=== PATIENT | male | born 1995 | race African-American/Black ===

== ENCOUNTER 2018-05-12 20:48 | Emergency (ER) | payer OTHER ==
[~2018-05-12] VITALS: Ht 175.3 cm; Wt 70.3 kg
--- NOTE | ~2018-05-12 | EKG ---
[place] [address] 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
[~2018-05-12 20:48] MED LIST: FLEXERIL PO; IBUPROFEN 800800 MG PO; NOHOMEMEDICATIONS; ZANTAC 150MG T150 MG PO
[2018-05-12 22:28] VITALS: BP 116/72
== END 2018-05-12 22:29 | disposition home or self-care (01) ==
LOC: ER 20:48
DX: R07.89 Other chest pain (principal); R09.89 Other specified symptoms and signs involving the circulatory and respiratory systems; Z21 Asymptomatic human immunodeficiency virus [HIV] infection status

== ENCOUNTER 2018-06-19 12:20 | Emergency (ER) | payer OTHER ==
[~2018-06-19] VITALS: Ht 172.7 cm; Wt 65.8 kg
--- NOTE | ~2018-06-19 | EKG ---
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
[2018-06-19 12:57] LABS: ABSOLUTE NEUTROPHILS 2.8 thou/uL (1.4-8.2); BASOPHILS 0.2 % (0.0-2.0); EOSINOPHILS 0.9 % (0.0-3.0); HEMATOCRIT 40.1 % (42.0-52.0); HEMOGLOBIN 13.2 gm/dL (14.0-18.0); LYMPHOCYTES 29.9 % (24.0-44.0); MCH 27.9 pg (26.0-34.0); MCHC 32.9 g/dL (28.0-37.0); MCV 84.6 fL (80.0-100.0); MONOCYTES 10.1 % (1.0-8.0); PLATELET COUNT 210 thou/uL (150-400); POLYS 58.9 % (36.0-66.0); RBC 4.74 mil/uL (4.50-6.00); RDW 14.2 % (10.5-14.5); WBC 4.7 thou/uL (4.0-11.0)
[2018-06-19 13:00] LABS: URINE BILIRUBIN NEGATIVE (Negative); URINE BLOOD NEGATIVE (Negative); URINE CLARITY CLEAR; URINE COLOR YELLOW; URINE GLUCOSE-RANDOM* NEGATIVE (Negative); URINE KETONES NEGATIVE (Negative); URINE LEUKOCYTES-REFLEX NEGATIVE (Negative); URINE NITRITE-REFLEX NEGATIVE (Negative); URINE PROTEIN (DIPSTICK) NEGATIVE (Negative); URINE UROBILINOGEN 0.2 E.U./dl (0.2-1.0)
[2018-06-19 13:03] LABS: CALCIUM 9.8 mg/dL (8.5-10.1); CREATININE 1.1 mg/dL (0.7-1.3); POTASSIUM 3.9 mmol/L (3.5-5.1)
[2018-06-19 13:06] LABS: AMP/METHAMP Negative (Negative); BARBITURATES Negative (Negative); BENZODIAZEPINES Negative (Negative); COCAINE Negative (Negative); METHADONE Negative (Negative); OPIATES Negative (Negative); PCP Negative (Negative)
[2018-06-19 13:13] LABS: ALBUMIN 4.2 g/dL (3.4-5.0); TOTAL BILIRUBIN 0.4 mg/dL (<0.1-1.0); TOTAL PROTEIN 8.8 g/dL (6.4-8.2)
[2018-06-19 15:16] VITALS: BP 122/78
== END 2018-06-19 15:17 | disposition home or self-care (01) ==
LOC: ER 12:20
PROVIDERS: Nurse Practitioner Family
DX: R42 Dizziness and giddiness (principal); R82.5 Elevated urine levels of drugs, medicaments and biological substances; Z87.891 Personal history of nicotine dependence

== ENCOUNTER 2019-01-05 14:53 | Emergency (ER) | payer BC ==
[~2019-01-05] VITALS: Ht 172.7 cm; Wt 74.8 kg
[2019-01-05 15:55] LABS: URINE BLOOD NEGATIVE (Negative); URINE CLARITY CLEAR; URINE COLOR YELLOW; URINE GLUCOSE-RANDOM* NEGATIVE (Negative); URINE KETONES 3+ (Negative); URINE LEUKOCYTES NEGATIVE (Negative); URINE NITRITE NEGATIVE (Negative); URINE PROTEIN (DIPSTICK) TRACE (Negative); URINE SPECIFIC GRAVITY >= 1.030 (1.005-1.035); URINE UROBILINOGEN 0.2 E.U./dl (0.2-1.0)
[2019-01-05 15:56] LABS: URINE BILIRUBIN NEGATIVE (Negative)
[2019-01-05 16:01] LABS: URINE REDUCING SUBSTANCE NEGATIVE
[2019-01-05 16:43] VITALS: BP 115/73
== END 2019-01-05 16:40 | disposition home or self-care (01) ==
LOC: ER 14:53
PROVIDERS: Physician Assistant
DX: Z20.2 Contact with and (suspected) exposure to infections with a predominantly sexual mode of transmission (principal); Z21 Asymptomatic human immunodeficiency virus [HIV] infection status; Z87.891 Personal history of nicotine dependence

== ENCOUNTER 2019-02-26 22:19 | Emergency (ER) | payer BC ==
[~2019-02-26] VITALS: Ht 177.8 cm; Wt 70.3 kg
[2019-02-26 22:39] LABS: ABSOLUTE NEUTROPHILS 2.3 thou/uL (1.4-8.2); BASOPHILS 0.2 % (0.0-2.0); EOSINOPHILS 1.3 % (0.0-3.0); HEMOGLOBIN 12.3 gm/dL (14.0-18.0); LYMPHOCYTES 51.4 % (24.0-44.0); MCH 28.8 pg (26.0-34.0); MCHC 33.3 g/dL (28.0-37.0); MCV 86.3 fL (80.0-100.0); PLATELET COUNT 191 thou/uL (150-400); POLYS 38.1 % (36.0-66.0); RBC 4.29 mil/uL (4.50-6.00); RDW 14.4 % (10.5-14.5); WBC 6.2 thou/uL (4.0-11.0)
[2019-02-26] MEDS ORDERED: BIKTARVY 50-201 EACH PO (22:40)
[2019-02-26 22:46] LABS: ANION GAP 7 mmol/L (7-16); BUN 11 mg/dL (7-18); CALCIUM 9.4 mg/dL (8.5-10.1); CHLORIDE 102 mmol/L (98-107); CO2 29 mmol/L (21-32); GLUCOSE 89 mg/dL (74-106); POTASSIUM 4.1 mmol/L (3.5-5.1); SODIUM 138 mmol/L (136-145)
[2019-02-26 22:55] LABS: TROPONIN-I <0.06 ng/mL (<0.06)
[2019-02-27] MEDS ORDERED: IBU600 MG PO (01:05)
[2019-02-27] MEDS ORDERED: COLCHICINE0.6 MG PO (01:05)
[2019-02-27 01:31] VITALS: BP 119/74
--- NOTE | 2019-02-27 11:46 | EKG ---
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
--- NOTE | 2019-02-27 11:47 | EKG ---
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 Hand: ANATOLY : 1995 Requested By: Julio Rudd Order Number: [id number] MD: Augusto Hancock Measurements Intervals [place] Rate: 62 P: 53 [place]: 149 QRS: 66 QRSD: 93 T: 50 QT: 409 QTc: 416 Interpretive Statements Sinus rhythm ST elevation suggests pericarditis versus early repolarization Compared to ECG 06/19/2018 12:27:35 no significant change Electronically Signed On 02-27-2019 11:46:57 CDT by Augusto Hancock [email or web address] <ELECTRONICALLY SIGNED> By: Augusto Hancock MD 02/27/19 1146 2302 2302 Augusto Hancock MD /NOHELIA
== END 2019-02-27 01:33 | disposition home or self-care (01) ==
LOC: ER 22:19
PROVIDERS: Emergency Medicine
DX: I31.9 Disease of pericardium, unspecified (principal); Z87.891 Personal history of nicotine dependence; Z21 Asymptomatic human immunodeficiency virus [HIV] infection status

== ENCOUNTER 2019-04-02 08:15 | Emergency (ER) | payer BC ==
[~2019-04-02] VITALS: Ht 177.8 cm; Wt 70.3 kg
[~2019-04-02 08:15] MED LIST changes: +BIKTARVY 50-201 EACH PO; +COLCHICINE0.6 MG PO; +IBU600 MG PO
[2019-04-02 08:32] LABS: URINE BILIRUBIN NEGATIVE (Negative); URINE BLOOD NEGATIVE (Negative); URINE CLARITY CLEAR; URINE COLOR YELLOW; URINE GLUCOSE-RANDOM* NEGATIVE (Negative); URINE KETONES NEGATIVE (Negative); URINE LEUKOCYTES NEGATIVE (Negative); URINE NITRITE NEGATIVE (Negative); URINE PROTEIN (DIPSTICK) NEGATIVE (Negative)
[2019-04-02 08:47] LABS: ABSOLUTE NEUTROPHILS 1.9 thou/uL (1.4-8.2); BASOPHILS 0.2 % (0.0-2.0); EOSINOPHILS 0.7 % (0.0-3.0); HEMATOCRIT 40.2 % (42.0-52.0); HEMOGLOBIN 13.1 gm/dL (14.0-18.0); LYMPHOCYTES 53.2 % (24.0-44.0); MCH 28.5 pg (26.0-34.0); MCHC 32.5 g/dL (28.0-37.0); MCV 87.6 fL (80.0-100.0); MONOCYTES 8.1 % (1.0-8.0); PLATELET COUNT 215 thou/uL (150-400); POLYS 37.8 % (36.0-66.0); RBC 4.59 mil/uL (4.50-6.00); RDW 14.3 % (10.5-14.5); WBC 5.1 thou/uL (4.0-11.0)
[2019-04-02 08:53] LABS: CALCIUM 9.2 mg/dL (8.5-10.1); CREATININE 0.9 mg/dL (0.7-1.3); POTASSIUM 3.9 mmol/L (3.5-5.1)
[2019-04-02 08:59] LABS: ALBUMIN 4.1 g/dL (3.4-5.0); TOTAL BILIRUBIN 0.3 mg/dL (<0.1-1.0); TOTAL PROTEIN 8.6 g/dL (6.4-8.2)
[2019-04-02] MEDS ORDERED: ONDANSETRON ODT8 MG PO (09:11)
[2019-04-02] MEDS ORDERED: PRILOSEC OTC20 MG PO (09:11)
[2019-04-02 09:20] VITALS: BP 116/69
[2019-04-02] MEDS ORDERED: PREDNISONE 20 M20 MG PO (09:20)
--- NOTE | 2019-04-03 14:17 | EKG ---
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 : 1995 Requested By: Dillon Raman Order Number: [id number] MD: James Valdes Measurements Intervals [place] Rate: 68 P: 83 [place]: 164 QRS: 79 QRSD: 89 T: 60 QT: 405 QTc: 431 Interpretive Statements Sinus rhythm ST elevation suggests acute pericarditis versus early repolarization Compared to ECG 02/26/2019 23:02:30 No significant change was found Electronically Signed On 04-03-2019 14:17:33 CDT by James Valdes [email or web address] ��������������������������������������������� <ELECTRONICALLY SIGNED> ���������������������������������������� By: James Valdes MD, [facility] ��������������������������������������������� 04/03/19 1417 3 3 James Valdes MD, FAC /EPI
== END 2019-04-02 09:20 | disposition home or self-care (01) ==
LOC: ER 08:15
PROVIDERS: Emergency Medicine
DX: R10.13 Epigastric pain (principal); R11.2 Nausea with vomiting, unspecified; B20 Human immunodeficiency virus [HIV] disease; Z87.891 Personal history of nicotine dependence

== ENCOUNTER 2019-06-11 10:08 | Emergency (ER) | payer BC ==
[~2019-06-11] VITALS: Ht 177.8 cm; Wt 72.1 kg
[~2019-06-11 10:08] MED LIST changes: +ONDANSETRON ODT8 MG PO; +PREDNISONE 20 M20 MG PO; +PRILOSEC OTC20 MG PO
[2019-06-11 11:01] LABS: ABSOLUTE NEUTROPHILS 2.3 thou/uL (1.4-8.2); BASOPHILS 0.5 % (0.0-2.0); EOSINOPHILS 0.7 % (0.0-3.0); HEMATOCRIT 38.8 % (42.0-52.0); HEMOGLOBIN 12.6 gm/dL (14.0-18.0); MCH 28.6 pg (26.0-34.0); MCHC 32.4 g/dL (28.0-37.0); MCV 88.1 fL (80.0-100.0); PLATELET COUNT 208 thou/uL (150-400); POLYS 51.8 % (36.0-66.0); RDW 14.7 % (10.5-14.5); WBC 4.4 thou/uL (4.0-11.0)
[2019-06-11 11:04] LABS: CALCIUM 9.5 mg/dL (8.5-10.1); POTASSIUM 3.7 mmol/L (3.5-5.1)
[2019-06-11 12:23] VITALS: BP 107/72
--- NOTE | 2019-06-13 07:52 | EKG ---
[place] [address] 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 : 1995 Requested By: Julio Rudd Order Number: [id number] MD: James Valdes Measurements Intervals [place] Rate: 67 P: 57 [place]: 163 QRS: 64 QRSD: 96 T: 32 QT: 396 QTc: 418 Interpretive Statements Sinus rhythm ST elev, probable normal early repol pattern Compared to ECG 04/02/2019 09:14:19 No significant change was found Electronically Signed On 06-13-2019 7:52:22 TATTOO TECHNICIAN by James Valdse [email or web address] <ELECTRONICALLY SIGNED> By: James Vlades MD, [facility] 06/13/19 0752 1209 08 James Valdes MD, FACC /EPI
== END 2019-06-11 12:24 | disposition home or self-care (01) ==
LOC: ER 10:08
PROVIDERS: Emergency Medicine
DX: R53.81 Other malaise (principal); Z21 Asymptomatic human immunodeficiency virus [HIV] infection status; Z87.891 Personal history of nicotine dependence

== ENCOUNTER 2020-04-08 10:18 | Emergency (ER) | payer BC ==
[~2020-04-08] VITALS: Ht 177.8 cm; Wt 71.7 kg
[2020-04-08 11:18] LABS: BASOPHILS 0.4 % (0.0-2.0); EOSINOPHILS 0.4 % (0.0-3.0); HEMATOCRIT 41.6 % (42.0-52.0); HEMOGLOBIN 13.6 gm/dL (14.0-18.0); LYMPHOCYTES 26.8 % (24.0-44.0); MCH 29.1 pg (26.0-34.0); MCHC 32.6 g/dL (28.0-37.0); MCV 89.4 fL (80.0-100.0); MONOCYTES 6.6 % (1.0-8.0); PLATELET COUNT 222 thou/uL (150-400); POLYS 65.8 % (36.0-66.0); RBC 4.66 mil/uL (4.50-6.00); RDW 14.2 % (10.5-14.5); WBC 4.6 thou/uL (4.0-11.0)
[2020-04-08 11:26] LABS: CALCIUM 9.2 mg/dL (8.5-10.1); CREATININE 0.9 mg/dL (0.7-1.3); POTASSIUM 4.3 mmol/L (3.5-5.1)
[2020-04-08 11:32] LABS: TOTAL BILIRUBIN 0.3 mg/dL (0.2-1.0); TOTAL PROTEIN 8.3 g/dL (6.4-8.2)
[2020-04-08] MEDS ORDERED: ZOFRAN ODT4 MG PO (12:04)
[2020-04-08 12:07] VITALS: BP 119/59
--- NOTE | 2020-04-08 16:46 | EKG ---
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: [facility] : 1995 Requested By: Camilo Jon Order Number: [id number] MD: James Valdes Measurements Intervals [place] Rate: 54 P: 60 [place]: 159 QRS: 71 QRSD: 89 T: 57 QT: 427 QTc: 405 Interpretive Statements Sinus rhythm ST elevation suggests early repolarization Compared to ECG 06/11/2019 12:09:40 No significant changes Electronically Signed On 04-08-2020 16:46:08 CDT by James Valdes [email or web address] <ELECTRONICALLY SIGNED> By: James Valdes MD, [facility] 04/08/20 1646 1129 1129 James Valdes MD, [facility] /EPI
== END 2020-04-08 12:07 | disposition home or self-care (01) ==
LOC: ER 10:18
PROVIDERS: Emergency Medicine
DX: R11.2 Nausea with vomiting, unspecified (principal); R07.89 Other chest pain; R10.13 Epigastric pain; R10.12 Left upper quadrant pain; J02.9 Acute pharyngitis, unspecified; R53.83 Other fatigue; B20 Human immunodeficiency virus [HIV] disease; Z79.899 Other long term (current) drug therapy; Z87.891 Personal history of nicotine dependence

== ENCOUNTER 2020-05-09 18:44 | Emergency (ER) | payer OTHER ==
[~2020-05-09] VITALS: Ht 180.3 cm; Wt 71.7 kg
[~2020-05-09 18:44] MED LIST changes: +ZOFRAN ODT4 MG PO
[2020-05-09 19:12] LABS: URINE BILIRUBIN NEGATIVE (Negative); URINE BLOOD NEGATIVE (Negative); URINE CLARITY CLEAR; URINE COLOR YELLOW; URINE GLUCOSE-RANDOM* NEGATIVE (Negative); URINE KETONES NEGATIVE (Negative); URINE LEUKOCYTES-REFLEX NEGATIVE (Negative); URINE NITRITE-REFLEX NEGATIVE (Negative); URINE PROTEIN (DIPSTICK) NEGATIVE (Negative); URINE SPECIFIC GRAVITY >= 1.030 (1.005-1.035)
[2020-05-09 19:15] LABS: ABSOLUTE NEUTROPHILS 1.4 thou/uL (1.4-8.2); BASOPHILS 0.3 % (0.0-2.0); EOSINOPHILS 0.6 % (0.0-3.0); HEMATOCRIT 40.2 % (42.0-52.0); HEMOGLOBIN 13.1 gm/dL (14.0-18.0); LYMPHOCYTES 52.3 % (24.0-44.0); MCH 29.4 pg (26.0-34.0); MCHC 32.6 g/dL (28.0-37.0); MCV 90.2 fL (80.0-100.0); MONOCYTES 8.9 % (1.0-8.0); PLATELET COUNT 209 thou/uL (150-400); POLYS 37.9 % (36.0-66.0); RBC 4.46 mil/uL (4.50-6.00); RDW 14.3 % (10.5-14.5); WBC 3.8 thou/uL (4.0-11.0)
[2020-05-09 19:23] LABS: CALCIUM 9.6 mg/dL (8.5-10.1); CREATININE 1.2 mg/dL (0.7-1.3); POTASSIUM 3.8 mmol/L (3.5-5.1)
[2020-05-09 19:29] LABS: ALBUMIN 4.3 g/dL (3.4-5.0); TOTAL BILIRUBIN 0.6 mg/dL (0.2-1.0); TOTAL PROTEIN 8.5 g/dL (6.4-8.2)
[2020-05-09 21:24] VITALS: BP 112/89
== END 2020-05-09 21:26 | disposition home or self-care (01) ==
LOC: ER
PROVIDERS: Physician Assistant
DX: R68.83 Chills (without fever) (principal); Z79.899 Other long term (current) drug therapy; Z21 Asymptomatic human immunodeficiency virus [HIV] infection status

== ENCOUNTER 2020-06-02 17:30 | Emergency (ER) | payer OTHER ==
[~2020-06-02] VITALS: Ht 180.3 cm; Wt 73.9 kg
[2020-06-02 19:28] LABS: ABSOLUTE NEUTROPHILS 2.5 thou/uL (1.4-8.2); BASOPHILS 0.4 % (0.0-2.0); HEMATOCRIT 36.9 % (42.0-52.0); HEMOGLOBIN 12.3 gm/dL (14.0-18.0); LYMPHOCYTES 46.3 % (24.0-44.0); MCH 29.8 pg (26.0-34.0); MCHC 33.4 g/dL (28.0-37.0); MCV 89.2 fL (80.0-100.0); PLATELET COUNT 219 thou/uL (150-400); POLYS 45.3 % (36.0-66.0); RBC 4.14 mil/uL (4.50-6.00); RDW 14.2 % (10.5-14.5); WBC 5.6 thou/uL (4.0-11.0)
[2020-06-02 19:36] LABS: POTASSIUM 4.1 mmol/L (3.5-5.1)
[2020-06-02 19:43] LABS: ALBUMIN 3.9 g/dL (3.4-5.0); TOTAL BILIRUBIN 0.2 mg/dL (0.2-1.0); TOTAL PROTEIN 8.1 g/dL (6.4-8.2)
[2020-06-02 20:32] LABS: URINE BILIRUBIN NEGATIVE (Negative); URINE BLOOD NEGATIVE (Negative); URINE CLARITY CLEAR; URINE COLOR YELLOW; URINE GLUCOSE-RANDOM* NEGATIVE (Negative); URINE KETONES NEGATIVE (Negative); URINE LEUKOCYTES-REFLEX NEGATIVE (Negative); URINE NITRITE-REFLEX NEGATIVE (Negative); URINE PROTEIN (DIPSTICK) NEGATIVE (Negative); URINE SPECIFIC GRAVITY >= 1.030 (1.005-1.035); URINE UROBILINOGEN 0.2 E.U./dl (0.2-1.0)
[2020-06-02 21:02] VITALS: BP 103/46
== END 2020-06-02 21:05 | disposition home or self-care (01) ==
LOC: ER 17:30
PROVIDERS: Student in an Organized Health Care Education/Training Program
DX: R53.83 Other fatigue (principal); Z91.14 Patient's other noncompliance with medication regimen; Z21 Asymptomatic human immunodeficiency virus [HIV] infection status; Z79.899 Other long term (current) drug therapy

== ENCOUNTER 2020-09-04 19:39 | Emergency (ER) | payer OTHER ==
[~2020-09-04] VITALS: Ht 180.3 cm; Wt 72.6 kg
[2020-09-04 19:42] VITALS: BP 114/78
== END 2020-09-04 20:15 | disposition left against medical advice (07) ==
LOC: ER 19:39
DX: M79.605 Pain in left leg (principal); Z79.899 Other long term (current) drug therapy

== ENCOUNTER 2020-10-22 09:43 | Emergency (ER) | payer OTHER ==
[~2020-10-22] VITALS: Ht 180.3 cm; Wt 70.3 kg
[2020-10-22 11:41] LABS: URINE BILIRUBIN NEGATIVE (Negative); URINE BLOOD NEGATIVE (Negative); URINE CLARITY CLEAR; URINE COLOR YELLOW; URINE GLUCOSE-RANDOM* NEGATIVE (Negative); URINE KETONES NEGATIVE (Negative); URINE LEUKOCYTES-REFLEX NEGATIVE (Negative); URINE NITRITE-REFLEX NEGATIVE (Negative); URINE PROTEIN (DIPSTICK) NEGATIVE (Negative); URINE SPECIFIC GRAVITY >= 1.030 (1.005-1.035); URINE UROBILINOGEN 0.2 E.U./dl (0.2-1.0)
[2020-10-22 12:30] VITALS: BP 132/70
== END 2020-10-22 12:41 | disposition home or self-care (01) ==
LOC: ER 09:43
PROVIDERS: Emergency Medicine
DX: R50.9 Fever, unspecified (principal); M79.10 Myalgia, unspecified site; M54.5 Low back pain; Z20.822 Contact with and (suspected) exposure to COVID-19; Z79.899 Other long term (current) drug therapy; Z21 Asymptomatic human immunodeficiency virus [HIV] infection status

== ENCOUNTER 2020-11-14 15:28 | Emergency (ER) | payer OTHER ==
[~2020-11-14] VITALS: Ht 180.3 cm; Wt 72.6 kg
[2020-11-14 15:33] VITALS: BP 125/68
== END 2020-11-14 16:14 | disposition home or self-care (01) ==
LOC: ER 15:28
DX: S90.122A Contusion of left lesser toe(s) without damage to nail, initial encounter (principal); Z79.899 Other long term (current) drug therapy; W23.0XXA Caught, crushed, jammed, or pinched between moving objects, initial encounter; Y93.89 Activity, other specified; Y92.89 Other specified places as the place of occurrence of the external cause; Y99.9 Unspecified external cause status

== ENCOUNTER 2020-11-26 08:10 | Emergency (ER) | payer OTHER ==
[~2020-11-26] VITALS: Ht 180.3 cm; Wt 72.6 kg
[2020-11-26 08:28] LABS: ABSOLUTE NEUTROPHILS 4.8 thou/uL (1.4-8.2); BASOPHILS 0.1 % (0.0-2.0); EOSINOPHILS 0.2 % (0.0-3.0); HEMATOCRIT 38.2 % (42.0-52.0); HEMOGLOBIN 12.5 gm/dL (14.0-18.0); LYMPHOCYTES 16.4 % (24.0-44.0); MCH 28.3 pg (26.0-34.0); MCHC 32.6 g/dL (28.0-37.0); MCV 86.6 fL (80.0-100.0); MONOCYTES 7.7 % (1.0-8.0); PLATELET COUNT 208 thou/uL (150-400); POLYS 75.6 % (36.0-66.0); RBC 4.41 mil/uL (4.50-6.00); WBC 6.4 thou/uL (4.0-11.0)
[2020-11-26 08:36] LABS: CALCIUM 9.2 mg/dL (8.5-10.1); CREATININE 1.1 mg/dL (0.7-1.3); POTASSIUM 3.6 mmol/L (3.5-5.1)
[2020-11-26 08:42] LABS: ALBUMIN 4.2 g/dL (3.4-5.0); TOTAL BILIRUBIN 0.4 mg/dL (0.2-1.0); TOTAL PROTEIN 8.4 g/dL (6.4-8.2)
[2020-11-26 09:17] LABS: AMP/METHAMP Negative (Negative); BARBITURATES Negative (Negative); BENZODIAZEPINES Negative (Negative); COCAINE Negative (Negative); METHADONE Negative (Negative); OPIATES Negative (Negative); PCP Negative (Negative)
[2020-11-26 09:48] LABS: URINE BILIRUBIN NEGATIVE (Negative); URINE BLOOD NEGATIVE (Negative); URINE CLARITY CLEAR; URINE COLOR YELLOW; URINE GLUCOSE-RANDOM* NEGATIVE (Negative); URINE KETONES NEGATIVE (Negative); URINE LEUKOCYTES-REFLEX NEGATIVE (Negative); URINE NITRITE-REFLEX NEGATIVE (Negative); URINE PROTEIN (DIPSTICK) 1+ (Negative); URINE SPECIFIC GRAVITY 1.025 (1.005-1.035)
[2020-11-26 09:56] LABS: AMORPHOUS URATES Few /LPF (None Seen); BACTERIA-REFLEX 1-9 Few /HPF (None Seen); CASTS None Seen /LPF (None Seen); SQUAMOUS 0-3 Few /LPF (0-3); URINE RBC 1-2 Rare /HPF (NONE SEEN); URINE WBC-REFLEX None Seen /HPF (0-5)
[2020-11-26] MEDS ORDERED: ZOFRAN ODT4 MG PO (10:30)
[2020-11-26 10:58] VITALS: BP 133/58
== END 2020-11-26 11:01 | disposition home or self-care (01) ==
LOC: ER 08:10
PROVIDERS: Emergency Medicine
DX: R11.2 Nausea with vomiting, unspecified (principal); R53.83 Other fatigue; R10.13 Epigastric pain; R42 Dizziness and giddiness; B20 Human immunodeficiency virus [HIV] disease; Z79.899 Other long term (current) drug therapy

== ENCOUNTER 2020-11-28 21:35 | Emergency (ER) | payer OTHER ==
[~2020-11-28] VITALS: Ht 175.3 cm; Wt 68.0 kg
[2020-11-28 21:57] VITALS: BP 117/69
[2020-11-28] MEDS ORDERED: IBUPROFEN 600600 M1 PO (22:20)
== END 2020-11-28 22:28 | disposition home or self-care (01) ==
LOC: ER 21:35
DX: S46.912A Strain of unspecified muscle, fascia and tendon at shoulder and upper arm level, left arm, initial encounter (principal); M79.18 Myalgia, other site; Z79.899 Other long term (current) drug therapy; X50.1XXA Overexertion from prolonged static or awkward postures, initial encounter; Y93.89 Activity, other specified; Y92.89 Other specified places as the place of occurrence of the external cause; Y99.9 Unspecified external cause status

== ENCOUNTER 2020-12-11 23:35 | Emergency (ER) | payer OTHER ==
[~2020-12-11] VITALS: Ht 177.8 cm; Wt 72.1 kg
[~2020-12-11 23:35] MED LIST changes: +IBUPROFEN 600600 M1 PO
[2020-12-12 00:23] VITALS: BP 107/43
== END 2020-12-12 00:30 | disposition home or self-care (01) ==
LOC: ER 23:35
DX: B35.3 Tinea pedis (principal); B20 Human immunodeficiency virus [HIV] disease; Z79.899 Other long term (current) drug therapy

== ENCOUNTER 2021-06-25 05:52 | Emergency (ER) | payer OTHER ==
[~2021-06-25] VITALS: Ht 177.8 cm; Wt 69.4 kg
[2021-06-25] MEDS ORDERED: CLOTRIMAZOLE 1%15 G1 TOP (06:14)
[2021-06-25 06:23] VITALS: BP 125/78
== END 2021-06-25 06:34 | disposition home or self-care (01) ==
LOC: ER 05:52
DX: B35.3 Tinea pedis (principal); F12.90 Cannabis use, unspecified, uncomplicated; Z79.899 Other long term (current) drug therapy

== ENCOUNTER 2021-06-29 22:16 | Emergency (ER) | payer OTHER ==
[~2021-06-29] VITALS: Ht 177.8 cm; Wt 70.3 kg
[~2021-06-29 22:16] MED LIST changes: +CLOTRIMAZOLE 1%15 G1 TOP
[2021-06-29 23:11] VITALS: BP 122/61
[2021-06-29] MEDS ORDERED: BIKTARVY 50-201 EACH PO (23:19)
== END 2021-06-29 23:43 | disposition home or self-care (01) ==
LOC: ER 22:16
PROVIDERS: Student in an Organized Health Care Education/Training Program
DX: R53.83 Other fatigue (principal); Z20.822 Contact with and (suspected) exposure to COVID-19; Z21 Asymptomatic human immunodeficiency virus [HIV] infection status; Z79.899 Other long term (current) drug therapy

== ENCOUNTER 2021-07-21 20:41 | Emergency (ER) | payer OTHER ==
[~2021-07-21] VITALS: Ht 180.3 cm; Wt 68.0 kg
[2021-07-21 21:07] VITALS: BP 117/72
== END 2021-07-21 21:42 | disposition home or self-care (01) ==
LOC: ER 20:41
PROVIDERS: Student in an Organized Health Care Education/Training Program
DX: R19.7 Diarrhea, unspecified (principal); Z20.822 Contact with and (suspected) exposure to COVID-19; R43.0 Anosmia; Z21 Asymptomatic human immunodeficiency virus [HIV] infection status; Z79.899 Other long term (current) drug therapy

== ENCOUNTER 2021-09-13 21:56 | Emergency (ER) | payer OTHER ==
[~2021-09-13] VITALS: Ht 177.8 cm; Wt 72.1 kg
[2021-09-13 22:41] LABS: ABSOLUTE NEUTROPHILS 4.1 thou/uL (1.4-8.2); BASOPHILS 0.4 % (0.0-2.0); EOSINOPHILS 0.1 % (0.0-3.0); HEMATOCRIT 43.8 % (42.0-52.0); HEMOGLOBIN 14.3 gm/dL (14.0-18.0); LYMPHOCYTES 25.8 % (24.0-44.0); MCH 28.3 pg (26.0-34.0); MCHC 32.7 g/dL (28.0-37.0); MCV 86.7 fL (80.0-100.0); PLATELET COUNT 215 thou/uL (150-400); POLYS 63.7 % (36.0-66.0); RBC 5.05 mil/uL (4.50-6.00); RDW 14.5 % (10.5-14.5); WBC 6.4 thou/uL (4.0-11.0)
[2021-09-13 22:43] LABS: URINE BILIRUBIN NEGATIVE (Negative); URINE BLOOD NEGATIVE (Negative); URINE CLARITY CLEAR; URINE COLOR YELLOW; URINE GLUCOSE-RANDOM* NEGATIVE (Negative); URINE KETONES NEGATIVE (Negative); URINE NITRITE-REFLEX NEGATIVE (Negative); URINE PROTEIN (DIPSTICK) NEGATIVE (Negative); URINE UROBILINOGEN 0.2 E.U./dl (0.2-1.0)
[2021-09-13 22:44] LABS: URINE LEUKOCYTES-REFLEX 2+ (Negative)
[2021-09-13 22:53] LABS: CASTS None Seen /LPF (None Seen); MUCUS None Seen strn/LPF (None Seen); SQUAMOUS None Seen /LPF (0-3); URINE RBC None Seen /HPF (NONE SEEN); URINE WBC-REFLEX 6-15 Few /HPF (0-5)
[2021-09-13 22:54] LABS: BACTERIA-REFLEX 1-9 Few /HPF (None Seen); CRYSTALS None Seen /LPF (None Seen)
[2021-09-13 22:55] LABS: CALCIUM 9.9 mg/dL (8.5-10.1); CREATININE 1.2 mg/dL (0.7-1.3); POTASSIUM 3.4 mmol/L (3.5-5.1)
[2021-09-13 23:01] LABS: ALBUMIN 4.7 g/dL (3.4-5.0); TOTAL BILIRUBIN 0.2 mg/dL (0.2-1.0); TOTAL PROTEIN 9.4 g/dL (6.4-8.2)
[2021-09-13] MEDS ORDERED: MACROBID 100 M100 M1 PO (23:31)
[2021-09-13] MEDS ORDERED: ZOFRAN ODT4 MG PO (23:31)
[2021-09-13 23:40] VITALS: BP 122/68
== END 2021-09-13 23:40 | disposition home or self-care (01) ==
LOC: ER 21:56
PROVIDERS: Emergency Medicine
DX: R11.2 Nausea with vomiting, unspecified (principal); R19.7 Diarrhea, unspecified; B20 Human immunodeficiency virus [HIV] disease; Z79.899 Other long term (current) drug therapy